=== PATIENT | male | born 1990 | race Caucasian/White ===

== ENCOUNTER 2018-08-23 14:14 | Emergency (ER) | payer OTHER ==
[~2018-08-23] VITALS: Ht 170.2 cm; Wt 68.2 kg
[~2018-08-23 14:14] MED LIST: CIPR-249 PO; FLAG500T PO; LEXA1TAB2 PO; MIRT30TA3 PO; NORCOTAB PO; PEPT262C2 PO
[2018-08-23 14:44] LABS: HEMOGLOBIN 14.3 g/dl (13.5-17.5); MEAN CORPUSCULAR HEMOGLOBIN 29.2 pg (27.0-33.0); MEAN CORPUSCULAR HGB CONC 32.5 g/dl (32.0-36.5); MEAN CORPUSCULAR VOLUME 89.8 fl (80.0-96.0); PLATELET COUNT, AUTOMATED 275 10^3/uL (150-450); WHITE BLOOD COUNT 8.3 10^3/uL (4.0-10.0)
[2018-08-23 15:12] LABS: ACETAMINOPHEN LEVEL < 2.0 UG/ML (10.0-30.0); ALBUMIN 4.2 GM/DL (3.2-5.2); ALT/SGPT 23 U/L (12-78); BILIRUBIN,DIRECT 0.2 MG/DL (0.0-0.2); BLOOD UREA NITROGEN 10 MG/DL (7-18); CALCIUM LEVEL 9.2 MG/DL (8.5-10.1); CARBON DIOXIDE LEVEL 26 MEQ/L (21-32); CHLORIDE LEVEL 104 MEQ/L (98-107); CREATININE FOR GFR 0.94 MG/DL (0.70-1.30); ETHYL ALCOHOL (ETHANOL) < 0.003 % (0.000-0.010); GLOMERULAR FILTRATION RATE > 60.0 (>60); GLUCOSE, FASTING 83 MG/DL (70-100); POTASSIUM SERUM 3.8 MEQ/L (3.5-5.1); SALICYLATE LEVEL < 1.7 MG/DL (5.0-30.0); SODIUM LEVEL 140 MEQ/L (136-145); TOTAL PROTEIN 8.1 GM/DL (6.4-8.2)
[2018-08-23 15:23] LABS: AMPHETAMINES LEVEL URINE NEGATIVE (NEGATIVE); BARBITURATES URINE NEGATIVE (NEGATIVE); BENZODIAZEPINES URINE NEGATIVE (NEGATIVE); CANNABINOIDS URINE POSITIVE (NEGATIVE); COCAINE METABOLITE URINE NEGATIVE (NEGATIVE); METHADONE URINE NEGATIVE (NEGATIVE); OPIATES URINE NEGATIVE (NEGATIVE); PHENCYCLIDINE URINE NEGATIVE (NEGATIVE)
[2018-08-23 17:05] VITALS: BP 120/77
== END 2018-08-23 17:10 | disposition home or self-care (01) ==
LOC: M ED 14:14 → EDBD 14:14 → M ED 17:10
DX: F33.9 Major depressive disorder, recurrent, unspecified (principal); S60.811A Abrasion of right wrist, initial encounter; S60.812A Abrasion of left wrist, initial encounter; X78.9XXA Intentional self-harm by unspecified sharp object, initial encounter; Y92.89 Other specified places as the place of occurrence of the external cause; F60.3 Borderline personality disorder; Z79.899 Other long term (current) drug therapy
CPT/HCPCS: 36415; 80048; 80076; 80307; 84443; 85027; 99284; G0480

== ENCOUNTER 2018-08-24 11:52 | Emergency (ER) | payer OTHER ==
[~2018-08-24] VITALS: Ht 170.2 cm; Wt 68.2 kg
[2018-08-24] MEDS ORDERED: NS 1,000 ML IV ONE (12:15)
[2018-08-24 12:28] LABS: HEMATOCRIT 46.9 % (42.0-52.0); MEAN CORPUSCULAR HEMOGLOBIN 29.1 pg (27.0-33.0); MEAN CORPUSCULAR VOLUME 90.9 fl (80.0-96.0); PLATELET COUNT, AUTOMATED 301 10^3/uL (150-450); RED BLOOD COUNT 5.16 10^6/uL (4.30-6.10); WHITE BLOOD COUNT 5.7 10^3/uL (4.0-10.0)
[2018-08-24 12:34] LABS: BASO % 0.5 % (0.0-1.0); EOS # 0.1 10^3/uL (0.0-0.50); EOS % 0.9 % (0.0-3.0); LYMPH # 1.1 10^3/uL (1.5-6.5); LYMPH % 19.5 % (24.0-44.0); MONO # 0.3 10^3/uL (0.0-0.8); MONO % 5.3 % (0.0-5.0); NEUTROPHILS # 4.1 10^3/uL (1.8-7.7); NEUTROPHILS % 73.3 % (36.0-66.0)
[2018-08-24 13:13] LABS: ACETAMINOPHEN LEVEL < 2.0 UG/ML (10.0-30.0); ALBUMIN 4.2 GM/DL (3.2-5.2); ALT/SGPT 21 U/L (12-78); BILIRUBIN,DIRECT 0.2 MG/DL (0.0-0.2); BILIRUBIN,TOTAL 0.8 MG/DL (0.2-1.0); BLOOD UREA NITROGEN 10 MG/DL (7-18); CALCIUM LEVEL 9.2 MG/DL (8.5-10.1); CARBON DIOXIDE LEVEL 31 MEQ/L (21-32); CHLORIDE LEVEL 102 MEQ/L (98-107); CREATININE FOR GFR 1.06 MG/DL (0.70-1.30); ETHYL ALCOHOL (ETHANOL) < 0.003 % (0.000-0.010); GLOMERULAR FILTRATION RATE > 60.0 (>60); GLUCOSE, FASTING 115 MG/DL (70-100); POTASSIUM SERUM 3.9 MEQ/L (3.5-5.1); SALICYLATE LEVEL < 1.7 MG/DL (5.0-30.0); SODIUM LEVEL 140 MEQ/L (136-145); TOTAL PROTEIN 8.2 GM/DL (6.4-8.2)
[2018-08-24 13:19] LABS: AMPHETAMINES LEVEL URINE NEGATIVE (NEGATIVE); BARBITURATES URINE NEGATIVE (NEGATIVE); BENZODIAZEPINES URINE NEGATIVE (NEGATIVE); CANNABINOIDS URINE POSITIVE (NEGATIVE); COCAINE METABOLITE URINE NEGATIVE (NEGATIVE); METHADONE URINE NEGATIVE (NEGATIVE); OPIATES URINE NEGATIVE (NEGATIVE); PHENCYCLIDINE URINE NEGATIVE (NEGATIVE)
--- NOTE | 2018-08-24 18:12 | ECGEPIP ---
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
[2018-08-25 00:09] VITALS: BP 126/80
== END 2018-08-25 00:15 | disposition short-term general hospital (02) ==
LOC: M ED 11:52
DX: T43.022A Poisoning by tetracyclic antidepressants, intentional self-harm, initial encounter (principal); Y92.89 Other specified places as the place of occurrence of the external cause; R94.31 Abnormal electrocardiogram [ECG] [EKG]; F33.9 Major depressive disorder, recurrent, unspecified; F17.200 Nicotine dependence, unspecified, uncomplicated; Z79.899 Other long term (current) drug therapy
CPT/HCPCS: 80048; 80076; 80307; 84443; 85027; 93005; 93041; 99285; G0480

== ENCOUNTER → 2018-09-11 | Outpatient (CLI) | payer OTHER ==
[~2018-09-11] MED LIST changes: +GASTROGRAFIN SOLUTION 30ML (Q9963) As Ordered ONE; +ISOVUE-370 76% 100ML VIAL (Q9967) As Ordered ONE
--- NOTE | 2018-09-11 17:51 | REP ---
CT ABDOMEN AND PELVIS WITHOUT AND WITH CONTRAST: 09/11/2018. Clinical history: Follow-up acute appendicitis and peritonitis with abscess status post percutaneous drainage 07/13/2018. Comparison: CT images from that drainage 07/13/2018, CT 07/12/2018, 07/07/2018. Technique: Oral Gastrografin mixture 10 ml in 290 ml flavored water for two doses per our bowel contrast protocol with noncontrast scanning followed by infusion of 100 ml as Isovue 370 and rescanning through the abdomen and pelvis. Coronal and sagittal reconstructions are provided. Findings: CT abdomen: Lung bases are now clear. The previous pleural effusion is resolved. Heart is not enlarged. There is no pericardial thickening or effusion. No definite hiatal hernia. Liver, spleen, gallbladder, pancreas, adrenal glands, aorta and kidneys were all normal. The abdominal portions of the colon and small bowel show oral contrast without dilatation. No air-fluid levels. No free air or perforation in the abdomen or pelvis on lung window review of all CT slices. No generalized ascites. No calcified gallstones or renal stone. Bones intact and unchanged. CT pelvis: The bone windows show sacrum, SI joints, pelvis, hips and ischia all grossly intact and unchanged. There is a single surgical clip right lower quadrant adjacent to the cecum and the psoas muscle. Previous abscess seen on 07/12/[address] guided drainage catheter placement 07/13/2018 has been evacuated. There is a small amount of soft tissue with minimal inflammatory change adjacent to it and no definite abscess in this region. Oral contrast reaches the proximal sigmoid colon. There is no sign of obstruction, colitis or diverticulitis. No pelvic free fluid or adenopathy. No free air. Bladder shows no wall thickening, mass or stone. Prostate unremarkable. There is no ventral or inguinal hernia nor pathologic sized inguinal adenopathy. Impression: 1. Interval removal of the drainage catheter placed 07/13/2018 for drainage of a periappendiceal abscess status post perforated appendicitis and surgery for that last July. Single surgical clip with some small amount of residual tissue or scarring without fluid collection or inflammatory changes in the fat adjacent. 2. Small bowel loops and colon otherwise entirely unremarkable with oral contrast throughout the small bowel and into the colon passing all the way to the sigmoid. 3. No other significant finding. There is no ascites, perforation, free air or recurrent abscess. Electronically Signed by Mickey Aly MD 09/11/2018 06:00 P
== END ==
LOC: M RAD 14:20
PROVIDERS: ATTEND Surgery
DX: K35.21 Acute appendicitis with generalized peritonitis, with abscess (principal)

== ENCOUNTER 2018-10-30 05:36 | Day surgery (SDC) | payer OTHER ==
[~2018-10-30] VITALS: Ht 170.2 cm; Wt 65.8 kg
[~2018-10-30 05:36] MED LIST changes: -GASTROGRAFIN SOLUTION 30ML (Q9963) As Ordered ONE; -ISOVUE-370 76% 100ML VIAL (Q9967) As Ordered ONE; +QUET1TAB7 PO; +QUET1TAB8 PO; +VITA-122 PO
[2018-10-30] MEDS ORDERED: LIDOCAINE 1% MDV 20ML VIAL SQ PRN (06:00)
[2018-10-30] MEDS ORDERED: LR 1,000 ML IV ONE (06:00)
[2018-10-30] MEDS ORDERED: BUPIVACAINE/EPIN 0.25% 30 ML VIAL As Ordered ONE (07:13)
[2018-10-30] MEDS ORDERED: GLYCOPYRROLATE INJ 0.2 MG/ML 2 ML VIAL As Ordered ONE (07:17)
[2018-10-30] MEDS ORDERED: ROCURONIUM BROMIDE 50 MG/5 ML VIAL As Ordered ONE (07:18)
[2018-10-30] MEDS ORDERED: NEOSTIGMINE 10 MG/10 ML VIAL (J2710) As Ordered ONE (07:18)
[2018-10-30] MEDS ORDERED: MIDAZOLAM INJ 2 MG/2 ML VIAL (J2250) As Ordered ONE (07:18)
[2018-10-30] MEDS ORDERED: LIDOCAINE 2% INJ 100 MG/5 ML SDV (FOR ANES.) As Ordered ONE (07:18)
[2018-10-30] MEDS ORDERED: ONDANSETRON 4MG/2ML VIAL (J2405) As Ordered ONE (07:18)
[2018-10-30] MEDS ORDERED: dexameTHASONE 4 MG/ML 1ML VIAL (J1100) As Ordered ONE (07:18)
[2018-10-30] MEDS ORDERED: PROPOFOL 200 MG/20 ML VIAL As Ordered ONE (07:18)
[2018-10-30] MEDS ORDERED: fentaNYL 100 MCG/2 ML INJECTION (J3010) As Ordered ONE ×3 (07:21→08:15)
[2018-10-30] MEDS ORDERED: SUGAMMADEX SODIUM 500 MG/5 ML VIAL (BRIDION) As Ordered ONE (08:10)
[2018-10-30] MEDS: MEPERIDINE INJ 25 MG/ML VIAL (J2175) IV PRN ×2 (08:21→08:26)
[2018-10-30] MEDS ORDERED: MEPERIDINE INJ 25 MG/ML VIAL (J2175) As Ordered ONE (08:21)
[2018-10-30] MEDS ORDERED: ONDANSETRON 4MG/2ML VIAL (J2405) IV PRN (08:45)
[2018-10-30] MEDS ORDERED: fentaNYL 100 MCG/2 ML INJECTION (J3010) IV PRN (08:45)
[2018-10-30] MEDS ORDERED: LR 1,000 ML IV SCH (08:45)
[2018-10-30] MEDS ORDERED: NORCO, ANEXSIA 5/325MG TABLET (HYDROcodone/ACETAMINOPHEN) PO PRN ×2 (08:45)
[2018-10-30 10:29] VITALS: BP 148/90
--- NOTE | 2018-11-02 10:41 | RO ---
DATE OF PROCEDURE: 10/30/2018 PREOPERATIVE DIAGNOSIS: Chronic appendicitis. POSTOPERATIVE DIAGNOSIS: Chronic appendicitis. PROCEDURE: Laparoscopic appendectomy. SURGEON: Dr. Hobson FINANCIAL RETIREMENT PLAN SPECIALIST: None. ANESTHESIA: General. ESTIMATED BLOOD LOSS (EBL): 5 COMPLICATIONS: None. INDICATIONS FOR PROCEDURE: Patient is a 20-year-old male, who had perforated appendicitis 3 months ago. He went for a laparoscopic appendectomy at the time, but could not visualize the appendix just a large abscess. Placed a drain in the abscess and removed it a week or so post-op. A month later, we repeated a CAT scan to see if the appendix had been obliterated or if it was present. It was still present, so we planned for a laparoscopic appendectomy. Risks and benefits of procedure not limited but including bleeding, infection, hernia formation, damage to surrounding structures and need for further surgery were discussed in detail with the patient. Informed consent was obtained and procedure was planned. DESCRIPTION OF PROCEDURE: Patient was brought back to operating room #3. After sufficient sedation, the abdomen sterilely prepped and draped. Next, a time-out was done to confirm proper patient and proper procedure. Following that a 5 mm incision made in left lower quadrant and a Veress needle inserted and the abdomen was insufflated to 50 mmHg. Next, the Veress needle was removed. A 5 mm Optiview port was used to gain access to the abdomen. Once the abdomen was entered, an 8 mm port was placed supraumbilically in the midline. Another 5 mm port suprapubically in the midline. The right lower quadrant was then elevated. The cecum was identified. The appendix was scarred down medial to the cecum adjacent to the terminal ileum. I was able to enter the peritoneum in this area, carefully dissected free around the appendix circumferentially. It was very large and dilated and thick-walled but I was able to dissect down to the base, get two PDS Endoloops around it, amputated it using the Enseal and then brought it out through the umbilical port site in a 5 mm EndoCatch bag. The fascia at the umbilical port site was then closed with #0 Vicryl [id number] suture. The abdomen was then desufflated. Skin incisions closed #4-0 Vicryl subcuticular sutures. The abdomen was cleaned and dried. Steri-Strips, 4 x 4 and tape were applied, thus ending procedure.
== END 2018-10-30 11:18 | disposition home or self-care (01) ==
LOC: M SDC 05:36
PROVIDERS: ATTEND Surgery
DX: K36 Other appendicitis (principal); F32.9 Major depressive disorder, single episode, unspecified; E78.00 Pure hypercholesterolemia, unspecified; M25.512 Pain in left shoulder; R51 Headache; F17.200 Nicotine dependence, unspecified, uncomplicated; Z87.81 Personal history of (healed) traumatic fracture; Z79.899 Other long term (current) drug therapy
CPT/HCPCS: 44970; 88302; J1100; J2175; J2250; J2405; J2710; J3010